=== PATIENT | male | born 1965 | race African-American/Black ===

== ENCOUNTER 2017-11-05 15:18 | Inpatient (IN) | payer MEDICARE, OTHER ==
[2017-11-05] VITALS (7 sets, daily range): BP systolic 112–184; BP diastolic 59–99
[~2017-11-05] VITALS: Ht 182.9 cm; Wt 123.4 kg
[2017-11-05] MEDS ORDERED: FLONASE ALLERG9.9 ML NS (15:33)
[2017-11-05] MEDS ORDERED: HYDRALAZINE HCL50 MG ORAL ×2 (15:33→19:59)
[2017-11-05] MEDS ORDERED: TAMSULOSIN HCL0.4 MG ORAL (15:34)
[2017-11-05] MEDS ORDERED: AMLODIPINE BESY10 MG ORAL (15:34)
[2017-11-05] MEDS ORDERED: Sodium Chloride 500ML 500 ML IV ONE (15:57)
[2017-11-05] MEDS ORDERED: Morphine Sulfate 4mg/ml Inj IVP ONE ×2 (16:00→18:00)
[2017-11-05] MEDS ORDERED: Isovue-300 100ml vial INJ PRN (16:00)
[2017-11-05 16:46] LABS: ANION GAP 6 mmol/L (5-15); BLOOD UREA NITROGEN 25 mg/dL (7-18); CALCIUM 8.7 MG/DL (8.5-10.1); CARBON DIOXIDE 26 MMOL/L (21-32); CHLORIDE 111 MMOL/L (98-107); POTASSIUM 4.1 MMOL/L (3.5-5.1); SODIUM 143 MMOL/L (136-145)
[2017-11-05 16:50] LABS: ALANINE AMINOTRANSFERASE 55 U/L (12-78); ALBUMIN/GLOBULIN RATIO 0.7 (1.0-2.7); ALKALINE PHOSPHATASE 79 U/L (46-116); APPEARANCE,URINE CLEAR; ASPARTATE AMINO TRANSFERASE 20 U/L (15-37); BILIRUBIN, URINE NEGATIVE (NEGATIVE); BILIRUBIN,TOTAL 0.2 MG/DL (0.2-1.0); COLOR,URINE PALE YELLOW; GLUCOSE, URINE (UA) NEGATIVE (NEGATIVE); KETONES,URINE NEGATIVE (NEGATIVE); LEUKOCYTE ESTERASE ,URINE NEGATIVE (NEGATIVE); NITRITE,URINE NEGATIVE (NEGATIVE); PH,URINE 5 (4.5-8.0); PROTEIN,URINE 3+ (NEGATIVE); UROBILINOGEN,URINE NORMAL MG/DL (0.0-1.0)
[2017-11-05 16:55] LABS: BASOPHILS % (AUTO) 0.5 % (0.0-2.0); EOSINOPHILS % (AUTO) 0.2 % (0.0-3.0); HEMATOCRIT 40.7 % (42.0-52.0); HEMOGLOBIN 13.4 G/DL (14.2-18.0); MEAN CORPUSCULAR VOLUME 85 FL (80-99); MONOCYTES % (AUTO) 3.3 % (1.0-10.0); PLATELET COUNT 145 K/UL (150-450); RED CELL DISTRIBUTION WIDTH 13.7 % (11.6-14.8); WHITE BLOOD COUNT 10.5 K/UL (4.8-10.8)
[2017-11-05] MEDS ORDERED: Gastrograffin 30ml ORAL PRN (17:00)
--- NOTE | 2017-11-05 19:13 | Emergency Room Report ---
History of Present Illness General Chief Complaint: Chest Pain Source: Patient Present Illness HPI 52-year-old male presents ED complaining of abdominal pain 3 days. Right-sided , sharp, 7 out of 10, nonradiating. Comes and goes. Denies nausea or vomiting. Notes episodes of chest tightness. Denies any at this time. Notes history of prior cholecystectomy. No other aggravating relieving factors. Denies any other associated symptoms Allergies: Coded Allergies: DIPHENHYDRAMINE (Verified Allergy, Unknown, 11/05/17) METOCLOPRAMIDE (Verified Allergy, Unknown, 11/05/17) Patient History Past Medical History: none Past Surgical History: none Pertinent Family History: none Social History: Denies: smoking, alcohol use, drug use Immunizations: UTD Reviewed Nursing Documentation: PMH: Agreed; PSxH: Agreed Nursing Documentation-PMH Hx Hypertension: Yes Review of Systems All Other Systems: negative except mentioned in HPI Physical Exam Vital Signs Date Time Temp Pulse Resp B/P (MAP) Pulse Ox O2 Delivery O2 Flow Rate FiO2 11/05/17 15:29 98.4 81 17 162/100 95 Room Air 98.4 Sp02 EP Interpretation: reviewed, normal General Appearance: no apparent distress, alert, GCS 15, non-toxic, obese Head: normocephalic Eyes: bilateral eye normal inspection, bilateral eye PERRL ENT: normal ENT inspection Neck: normal inspection Respiratory: chest non-tender, lungs clear, normal breath sounds, speaking full sentences Cardiovascular #1: regular rate, rhythm, no edema Gastrointestinal: normal bowel sounds, soft, non-distended, no guarding, no rebound, tenderness, other - RUQ surgical scar Rectal: deferred Genitourinary: no CVA tenderness Musculoskeletal: normal inspection Neurologic: alert, oriented x3, responsive, motor strength/tone normal, sensory intact, speech normal Skin: normal inspection Lymphatic: normal inspection Medical Decision Making Diagnostic Impression: Primary Impression: Renal insufficiency Additional Impression: Abdominal pain Qualified Codes: R10.31 - Right lower quadrant pain ER Course Hospital Course 52-year-old male presents to ED with R sided abd pain Differential diagnoses include: pyelonephritis, appendicits, SBO Clinical course Patient placed on stretcher. residential monitor. After initial history and physical I ordered labs, IV fluids, UA, pain medication and CT scan Labs - no leukocytosis, Hb/Hct stable. BUN/Cr elevated, trop negative CT abdomen and pelvis - s/p cholecystectomy, no acute process I discussed findings with the patient. He is not aware of any kidney issues. Patient continues to have pain. We will admit for renal failure and intractable abdominal pain Case discussed with Dr. Holbrook and he agreed to accept the patient to his service for further care and support I feel this is a highly complex case requiring extensive working including EKG/ Rhythm strip, Xray/CT/US, Blood/urine lab work, repeat exams while in ED, and administration of strong opiates/narcotics for pain control, admission to hospital or close patient follow up. Diagnosis - renal insufficiency, abdominal pain Patient admitted to floor in serious condition Labs Test 11/05/17 16:09 White Blood Count 10.5 K/UL (4.8-10.8) Red Blood Count 4.80 M/UL (4.70-6.10) Hemoglobin 13.4 G/DL (14.2-18.0) Hematocrit 40.7 % (42.0-52.0) Mean Corpuscular Volume 85 FL (80-99) Mean Corpuscular Hemoglobin 27.8 PG (27.0-31.0) Mean Corpuscular Hemoglobin Concent 32.8 G/DL (32.0-36.0) Red Cell Distribution Width 13.7 % (11.6-14.8) Platelet Count 145 K/UL (150-450) Mean Platelet Volume 6.8 FL (6.5-10.1) Neutrophils (%) (Auto) 87.0 % (45.0-75.0) Lymphocytes (%) (Auto) 9.0 % (20.0-45.0) Monocytes (%) (Auto) 3.3 % (1.0-10.0) Eosinophils (%) (Auto) 0.2 % (0.0-3.0) Basophils (%) (Auto) 0.5 % (0.0-2.0) Urine Color Pale yellow Urine Appearance Clear Urine pH 5 (4.5-8.0) Urine Specific [place] 1.015 (1.005-1.035) Urine Protein 3+ (NEGATIVE) Urine Glucose (UA) Negative (NEGATIVE) Urine Ketones Negative (NEGATIVE) Urine Occult Blood Negative (NEGATIVE) Urine Nitrite Negative (NEGATIVE) Urine Bilirubin Negative (NEGATIVE) Urine Urobilinogen Normal MG/DL (0.0-1.0) Urine Leukocyte Esterase Negative (NEGATIVE) Urine RBC 0-2 /HPF (0 - 0) Urine WBC 0-2 /HPF (0 - 0) Urine Squamous Epithelial Cells None /LPF (NONE/OCC) Urine Bacteria None /HPF (NONE) Sodium Level 143 MMOL/L (136-145) Potassium Level 4.1 MMOL/L (3.5-5.1) Chloride Level 111 MMOL/L (98-107) Carbon Dioxide Level 26 MMOL/L (21-32) Anion Gap 6 mmol/L (5-15) Blood Urea Nitrogen 25 mg/dL (7-18) Creatinine 2.0 MG/DL (0.55-1.30) Estimat Glomerular Filtration Rate 42.9 mL/min (>60) Glucose Level 107 MG/DL (74-106) Calcium Level 8.7 MG/DL (8.5-10.1) Total Bilirubin 0.2 MG/DL (0.2-1.0) Aspartate Amino Transf (AST/SGOT) 20 U/L (15-37) Alanine Aminotransferase (ALT/SGPT) 55 U/L (12-78) Alkaline Phosphatase 79 U/L (46-116) Troponin I 0.000 ng/mL (0.000-0.056) Total Protein 7.1 G/DL (6.4-8.2) Albumin 3.0 G/DL (3.4-5.0) Globulin 4.1 g/dL Albumin/Globulin Ratio 0.7 (1.0-2.7) Lipase 441 U/L (73-393) EKG Diagnostic Results Rate: normal Rhythm: NSR ST Segments: no acute changes ASA given to the pt in ED: No Rhythm Strip Diag. Results EP Interpretation: yes Rhythm: NSR, no PVC's, no ectopy CT/MRI/US Diagnostic Results CT/MRI/US Diagnostic Results : Imaging Test Ordered: CT A/P Impression No appendicitis, SBO, or diverticulitis. No hydronephrosis or ureteral calculus. Distended bladder. Cholecystectomy. No radiopaque choledocholithiasis. Unremarkable pancreas. Last Vital Signs Date Time Temp Pulse Resp B/P (MAP) Pulse Ox O2 Delivery O2 Flow Rate FiO2 11/05/17 18:45 98.6 11/05/17 18:00 67 17 122/59 99 Room Air Status: improved Disposition: ADMITTED INPATIENT Condition: Serious Referrals: NON PHYSICIAN (PCP) Ari Figueroa MD Nov 05, 2017 19:13
[2017-11-05] MEDS ORDERED: Tamsulosin 0.4mg cap ORAL SCH (21:00)
[2017-11-05] MEDS ORDERED: Milk of Magnesia 30ml Ud ORAL PRN (21:15)
[2017-11-05] MEDS ORDERED: HYDROcodone/Acetamin 10/325 tab ORAL PRN (21:15)
[2017-11-05] MEDS ORDERED: Norco 5mg/325mg tab ORAL PRN (21:15)
[2017-11-05] MEDS: HydrALAZINE 50mg tab ORAL SCH (21:25)
[2017-11-05] MEDS: D5NS 1,000 ML IV SCH (21:27)
[2017-11-05] MEDS: Morphine Sulfate 2mg/ml Inj IVP PRN (21:39)
[2017-11-06 00:02] VITALS: BP 159/86
[2017-11-06 04:00] VITALS: BP 153/93
[2017-11-06] MEDS: HydrALAZINE 50mg tab ORAL SCH ×3 (05:28→23:04)
[2017-11-06] MEDS: Morphine Sulfate 2mg/ml Inj IVP PRN ×3 (05:47→20:29)
[2017-11-06] MEDS: D5NS 1,000 ML IV SCH ×2 (06:04→17:30)
[2017-11-06 06:34] LABS: BASOPHILS % (AUTO) 0.6 % (0.0-2.0); EOSINOPHILS % (AUTO) 0.3 % (0.0-3.0); HEMATOCRIT 37.1 % (42.0-52.0); HEMOGLOBIN 12.2 G/DL (14.2-18.0); LYMPHOCYTES % (AUTO) 17.7 % (20.0-45.0); MEAN CORPUSCULAR VOLUME 85 FL (80-99); NEUTROPHILS % (AUTO) 74.5 % (45.0-75.0); PLATELET COUNT 135 K/UL (150-450); RED BLOOD COUNT 4.39 M/UL (4.70-6.10); RED CELL DISTRIBUTION WIDTH 13.6 % (11.6-14.8)
[2017-11-06 06:55] LABS: ANION GAP 7 mmol/L (5-15); BLOOD UREA NITROGEN 23 mg/dL (7-18); CALCIUM 8.4 MG/DL (8.5-10.1); CARBON DIOXIDE 24 MMOL/L (21-32); CHLORIDE 112 MMOL/L (98-107); CREATININE 1.7 MG/DL (0.55-1.30); POTASSIUM 3.9 MMOL/L (3.5-5.1); SODIUM 143 MMOL/L (136-145)
[2017-11-06 08:00] VITALS: BP 164/86
[2017-11-06] MEDS: Docusate 100mg cap ORAL SCH ×2 (08:10→18:07)
[2017-11-06] MEDS: Heparin 5000 units/ml inj SUBQ SCH ×2 (08:14→20:54)
--- NOTE | 2017-11-06 08:44 | Diagnostic Imaging Report ---
Indication: Right upper quadrant abdominal pain Technique: Spiral acquisitions obtained through the abdomen and pelvis. Patient ingested enteric contrast. No IV contrast utilized, due to renal insufficiency.. Multiplanar reconstructions were generated. Total dose length product 1210.97 mGycm. CTDIvol(s) 19.95 mGy. Dose reduction achieved using automated exposure control Comparison: None Findings: Normal appendix. There is fairly extensive colonic diverticulosis. No evidence of diverticulitis. No small bowel distention. Ingested contrast has traversed most of the length of the small bowel. The distal esophagus, stomach, duodenum are unremarkable. No small bowel distention or small bowel wall thickening. No free or loculated intraperitoneal air or fluid is evident. A surgical scar and fascial fantasma are seen along the right lower quadrant. Lack of IV contrast limits assessment of the solid organs. There is a 1.5 cm cyst at the tip of the right hepatic lobe. The gallbladder is surgically absent. The extrahepatic bile ducts are ectatic, measuring up to 10 mm diameter. No downstream obstructive lesion or intrahepatic biliary ductal dilatation demonstrated. The pancreas, spleen, adrenals are unremarkable. The kidneys demonstrate contour lobulation bilaterally, as well as slight stranding of the perinephric fat. No focal abnormality. No renal or ureteral calculi, hydronephrosis, or hydroureter. The bladder is distended, unremarkable. No pelvic mass or adenopathy. No retroperitoneal or mesenteric mass or adenopathy. The included lung bases demonstrate a 3 mm calcified nodule in the right middle lobe. There are focal groundglass opacities are seen in the lower lobes bilaterally, likely areas of atelectasis. The bones are unremarkable. Impression: No acute or significant abnormality Colonic diverticulosis. No evidence of diverticulitis Prior cholecystectomy. Mildly ectatic extrahepatic bile ducts, likely related to postcholecystectomy state. Correlate with liver function tests Other findings as noted, including right middle lobe pulmonary calcified granuloma, basilar pulmonary atelectatic changes, right lobe liver cyst This agrees with the preliminary interpretation provided overnight by [facility]eradiology service. The CT scanner at [facility] is accredited by the [employer] and the scans are performed using protocols designed to limit radiation exposure to as low as reasonably achievable to attain images of sufficient resolution adequate for diagnostic evaluation.
--- NOTE | 2017-11-06 08:45 | History and Physical ---
History & Physical (DB) History & Physical History & Physical HISTORY & PHYSICAL EXAM Chief Complaint: Abdominal pain Reason for Hospitalization: Pancreatitis History obtained from: Chart and Patient HPI: The patient is a 52 year old male with a h/o obesity, HTN and BPH who presents with 4 days of sharp epigastric and RUQ pain. He describes the pain as a stabbing sensation that comes and goes with a maximal intensity of 6/10, no radiation, alleviated by lying on his side but not really positional. It is aggravated by eating but he is able to tolerate PO, no N/V, no D/C, having daily formed stools, no F/C, no CP, no SOB, no hematemesis, hemoptysis, melena or BRBPR. No dysuria, urgency, hesitancy or frequency. He has been trying to keep himself hydrated. H/O prior naina many years ago. No T/E/D use. In the ED he was AFVSS x for elevated BP, ECG/trop neg, CT neg, elevated lipase and Cr. He has been admitted for further management. 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, single not , no kids Family History: Non-contributory Allergies: Diphenhydramine, Metoclopramide Active Scripts Medications Dose Route/Sig Max Daily Dose Days Date Category Hydralazine Hcl* (Hydralazine HCl) 50 Mg Tablet 50 Mg ORAL THREE TIMES A DAY 11/05/17 Reported Tamsulosin Hcl* (Tamsulosin HCl) 0.4 Mg Cap.er.24h 0.4 Mg ORAL BEDTIME 11/05/17 Reported Amlodipine Besylate* (Amlodipine Besylate) 10 Mg Tablet 10 Mg ORAL DAILY 11/05/17 Reported General ROS: no weight loss or fever Psychological ROS: no depression or mood changes, no memory loss Ophthalmic ROS: no visual changes or eye irritation ENT ROS: no nasal congestion, hearing loss, dizziness Allergy and Immunology ROS: no allergic symptoms or urticaria Hematological and Lymphatic ROS: no swollen glands, unusual bleeding or bruising Endocrine ROS: no polyuria, polydipsia, weight changes, temperature intolerance Respiratory ROS: no cough, shortness of breath, or wheezing Cardiovascular ROS: no chest pain or dyspnea on exertion Gastrointestinal ROS: + abdominal pain, no change in bowel habits, or black or bloody stools Musculoskeletal ROS: no myalgias or arthralgias Neurological ROS: no TIA or stroke symptoms Dermatological ROS: no new or changing skin lesions, rashes or pruritis Physical Exam Last Vital Signs Date Time Temp Pulse Resp B/P (MAP) Pulse Ox O2 Delivery O2 Flow Rate FiO2 11/06/17 08:11 71 164/86 11/06/17 08:00 97.3 20 98 97.3 11/06/17 04:00 Room Air General appearance: alert, cooperative, no distress, appears stated age, obese male Head: Normocephalic, without obvious abnormality, atraumatic Eyes: conjunctivae/corneas clear. PERRL, EOM's intact. Throat: Lips, mucosa, and tongue normal. Teeth and gums normal Neck: supple, symmetrical, trachea midline, no adenopathy, thyroid: not enlarged, symmetric, no tenderness/mass/nodules, no carotid bruit and no JVD Lungs: clear to auscultation bilaterally Heart: regular rate and rhythm, S1, S2 normal, no murmur, click, rub or gallop Abdomen: RUQ and epigastric TTP, S/ND c NABS Extremities: extremities normal, atraumatic, no cyanosis or edema Pulses: 2+ and symmetric Skin: Skin color, texture, turgor normal. No rashes or lesions Neurologic: Grossly normal Laboratory Tests Test 11/05/17 16:09 11/06/17 02:40 11/06/17 05:20 White Blood Count 10.5 K/UL (4.8-10.8) 9.0 K/UL (4.8-10.8) Red Blood Count 4.80 M/UL (4.70-6.10) 4.39 M/UL (4.70-6.10) L Hemoglobin 13.4 G/DL (14.2-18.0) L 12.2 G/DL (14.2-18.0) L Hematocrit 40.7 % (42.0-52.0) L 37.1 % (42.0-52.0) L Mean Corpuscular Volume 85 FL (80-99) 85 FL (80-99) Mean Corpuscular Hemoglobin 27.8 PG (27.0-31.0) 27.9 PG (27.0-31.0) Mean Corpuscular Hemoglobin Concent 32.8 G/DL (32.0-36.0) 33.0 G/DL (32.0-36.0) Red Cell Distribution Width 13.7 % (11.6-14.8) 13.6 % (11.6-14.8) Platelet Count 145 K/UL (150-450) L 135 K/UL (150-450) L Mean Platelet Volume 6.8 FL (6.5-10.1) 7.0 FL (6.5-10.1) Neutrophils (%) (Auto) 87.0 % (45.0-75.0) H 74.5 % (45.0-75.0) Lymphocytes (%) (Auto) 9.0 % (20.0-45.0) L 17.7 % (20.0-45.0) L Monocytes (%) (Auto) 3.3 % (1.0-10.0) 7.0 % (1.0-10.0) Eosinophils (%) (Auto) 0.2 % (0.0-3.0) 0.3 % (0.0-3.0) Basophils (%) (Auto) 0.5 % (0.0-2.0) 0.6 % (0.0-2.0) Urine Color Pale yellow Urine Appearance Clear Urine pH 5 (4.5-8.0) Urine Specific [place] 1.015 (1.005-1.035) Urine Protein 3+ (NEGATIVE) H Urine Glucose (UA) Negative (NEGATIVE) Urine Ketones Negative (NEGATIVE) Urine Occult Blood Negative (NEGATIVE) Urine Nitrite Negative (NEGATIVE) Urine Bilirubin Negative (NEGATIVE) Urine Urobilinogen Normal MG/DL (0.0-1.0) Urine Leukocyte Esterase Negative (NEGATIVE) Urine RBC 0-2 /HPF (0 - 0) H Urine WBC 0-2 /HPF (0 - 0) Urine Squamous Epithelial Cells None /LPF (NONE/OCC) Urine Bacteria None /HPF (NONE) Sodium Level 143 MMOL/L (136-145) 143 MMOL/L (136-145) Potassium Level 4.1 MMOL/L (3.5-5.1) 3.9 MMOL/L (3.5-5.1) Chloride Level 111 MMOL/L (98-107) H 112 MMOL/L (98-107) H Carbon Dioxide Level 26 MMOL/L (21-32) 24 MMOL/L (21-32) Anion Gap 6 mmol/L (5-15) 7 mmol/L (5-15) Blood Urea Nitrogen 25 mg/dL (7-18) H 23 mg/dL (7-18) H Creatinine 2.0 MG/DL (0.55-1.30) H 1.7 MG/DL (0.55-1.30) H Estimat Glomerular Filtration Rate 42.9 mL/min (>60) 51.8 mL/min (>60) Glucose Level 107 MG/DL (74-106) H 95 MG/DL (74-106) Calcium Level 8.7 MG/DL (8.5-10.1) 8.4 MG/DL (8.5-10.1) L Total Bilirubin 0.2 MG/DL (0.2-1.0) Aspartate Amino Transf (AST/SGOT) 20 U/L (15-37) Alanine Aminotransferase (ALT/SGPT) 55 U/L (12-78) Alkaline Phosphatase 79 U/L (46-116) Troponin I 0.000 ng/mL (0.000-0.056) 0.005 ng/mL (0.000-0.056) Total Protein 7.1 G/DL (6.4-8.2) Albumin 3.0 G/DL (3.4-5.0) L Globulin 4.1 g/dL Albumin/Globulin Ratio 0.7 (1.0-2.7) L Lipase 441 U/L (73-393) H 119 U/L (73-393) Urine Eosinophils None seen Urine Random Sodium 71 mmol/L (20-110) Urine Creatinine 52.2 MG/DL (30.0-125.0) Hemoglobin A1c 6.2 % (4.3-6.0) H Osmolality Pending Assessment/Problem List: * Abdominal pain * Pancreatitis * HTN, poorly controlled * Obesity * Abnormal renal function, CARLOS vs CKD Plan: * Admit to hospital * NPO, bowel rest, IVF * Pain control/supportive care * GI evaluation * BP control * Monitor renal function, IVF, renal US, urine studies, renal evaluation DVT Prophylaxis: HEPARIN SQ Code status: full Hospital Classification declaration: Based on this initial evaluation, and depending on the patient's clinical course, I anticipate that this patient will require hospitalization for 2-3 days. Disposition: Once the patient is stable to leave the hospital, I anticipate the patient will likely be discharged to the following environment I spent 70 minutes on this patient's case, and minutes was dedicated to counseling and/or care coordination. Case was discussed with JUANJO, RN and consultants Time of note may not reflect time of encounter. MD Sheron Kelly Ashkan L. MD Nov 06, 2017 08:45
[2017-11-06 12:00] VITALS: BP 146/89
--- NOTE | 2017-11-06 12:07 | Diagnostic Imaging Report ---
Indication: Pain, abnormal renal function tests, acute renal failure Technique: Grayscale and duplex images of the kidneys, retroperitoneum, and bladder were obtained. Comparison: none Findings: Right kidney measures 10.9 cm in length. Left kidney measures 10.8 cm in length. Both kidneys demonstrate slightly increased echogenicity. No hydronephrosis. Small cysts are demonstrated bilaterally. Normal inferior vena cava. Bladder is distended, calculated volume 460 mL. Impression: Equivocally mildly increased renal echogenicity, if real could indicate medical renal disease Negative for hydronephrosis Incidental finding bilateral renal cysts.
--- NOTE | 2017-11-06 13:34 | Diagnostic Imaging Report ---
Indication: Sharp epigastric and right upper quadrant pain. Mildly ectatic extrahepatic bile ducts seen on recent CT Technique: Coronal and axial single shot fast spin-echo breath-hold, axial T2 FRFSE, 2-D thick slab MRCP, AXIAL 2-D FIESTA fat saturated, axial 3-D dual echo breath-hold, water weighted axial LAVA FLEX, revealed 3-D MRCP images were obtained of the abdomen. MIP reconstructions were generated of the bile ducts Comparison: Reference made to abdomen pelvis CT dated 11/05/2017 Findings: Common hepatic duct and common bile duct each measure approximately 10 mm in diameter. There is also mild central intrahepatic ductal dilatation. Normal caliber pancreatic duct. The common bile duct tapers to more normal caliber downstream. No filling defects are demonstrated. No downstream obstructive lesion demonstrated. No pancreatic head mass. The liver demonstrates a lobulated cyst in the tip of the right hepatic lobe. It is otherwise unremarkable. The pancreas, spleen, adrenals are unremarkable. The left kidney demonstrates 2 tiny cysts, one of which is equivocally visible in retrospect on previous noncontrast CT. The kidneys are otherwise unremarkable. Impression: Dilated extrahepatic and mildly dilated central intrahepatic bile ducts, but no definite downstream obstructive lesion demonstrated. Possibly related to postcholecystectomy state. Correlate with liver function tests Right lobe liver cyst. 2 tiny left renal cysts
[2017-11-06 16:00] VITALS: BP 152/84
--- NOTE | 2017-11-06 17:10 | Consultation ---
Consult Note Consult Note asked to eval for elevated Cr 52-year-old male presents ED complaining of abdominal pain 3 days. Right-sided , sharp, 7 out of 10, nonradiating. Comes and goes. Denies nausea or vomiting. Notes episodes of chest tightness. Denies any at this time. Notes history of prior cholecystectomy. No other aggravating relieving factors. Denies any other associated symptoms Allergies: DIPHENHYDRAMINE (Verified Allergy, Unknown, 11/05/17) METOCLOPRAMIDE (Verified Allergy, Unknown, 11/05/17) Patient History Obesity, HTN, BPH Interviewed- examined data reviewed . Assessment/Plan - Abdominal pain - Pancreatitis - HTN, poorly controlled - BPH - Obesity with elevated Hgb A1c and 3+ Proteinuria - Abnormal renal function, CARLOS vs CKD, likely main componenet of dehydration slow hydrate- increase flomax monitor renal parameters adjust bp meds as needed keep BS and BP in check CAREY GONZALEZ Nov 06, 2017 17:10
[2017-11-06] MEDS: Tamsulosin 0.4mg cap ORAL SCH (18:07)
[2017-11-06] MEDS: Potassium Chloride 10 MEQ in D5 1/2NS 1,000 ML IV SCH (18:08)
[2017-11-06 20:00] VITALS: BP 158/91
[2017-11-06] MEDS ORDERED: D5NS 1000ml IV ONE (22:03)
[2017-11-06] MEDS ORDERED: Morphine Sulfate 4mg/ml Inj IVP PRN (22:15)
--- NOTE | 2017-11-06 22:36 | General Progress Note ---
Assessment/Plan Assessment/Plan Assessment - Resolved abdominal pain - mildly elevated lipase - possible mild pancreatitis - diverticulosis Recommendations - clears and advance at tolerated - follow symptoms and exam - no further GI w/u, unless has another episode of pancreatitis - Outpatient EGD/Colon Subjective Allergies: Coded Allergies: DIPHENHYDRAMINE (Verified Allergy, Unknown, 11/05/17) METOCLOPRAMIDE (Verified Allergy, Unknown, 11/05/17) Objective Last 24 Hour Vital Signs Date Time Temp Pulse Resp B/P (MAP) Pulse Ox O2 Delivery O2 Flow Rate FiO2 11/06/17 20:00 98.4 65 18 158/91 97 98.4 11/06/17 16:00 97.9 67 20 152/84 97 97.9 11/06/17 13:13 146/89 11/06/17 12:00 97.8 70 20 146/89 97 97.8 11/06/17 08:11 71 164/86 11/06/17 08:00 97.3 71 20 164/86 98 97.3 11/06/17 05:28 153/93 11/06/17 04:00 98.1 71 20 153/93 94 98.1 11/06/17 04:00 98.1 71 20 153/93 94 Room Air 98.1 11/06/17 00:02 98.1 74 20 159/86 96 98.1 Intake and Output 11/05/17 11/06/17 19:00 07:00 Intake Total 800 ml Output Total 1000 ml Balance -200 ml IV Total 800 ml Output Urine Total 1000 ml # Voids 1 Laboratory Tests 11/06/17 02:40: Urine Eosinophils None seen, Urine Random Sodium 71, Urine Creatinine 52.2 11/06/17 05:20: White Blood Count 9.0, Red Blood Count 4.39L, Hemoglobin 12.2L, Hematocrit 37.1L , Mean Corpuscular Volume 85, Mean Corpuscular Hemoglobin 27.9, Mean Corpuscular Hemoglobin Concent 33.0, Red Cell Distribution Width 13.6, Platelet Count 135L, Mean Platelet Volume 7.0, Neutrophils (%) (Auto) 74.5, Lymphocytes ( %) (Auto) 17.7L, Monocytes (%) (Auto) 7.0, Eosinophils (%) (Auto) 0.3, Basophils (%) (Auto) 0.6, Sodium Level 143, Potassium Level 3.9, Chloride Level 112H, Carbon Dioxide Level 24, Anion Gap 7, Blood Urea Nitrogen 23H, Creatinine 1.7H, Estimat Glomerular Filtration Rate 51.8, Glucose Level 95, Hemoglobin A1c 6.2H, Osmolality 305, Calcium Level 8.4L, Troponin I 0.005, C-Reactive Protein, Quantitative < 0.4, Lipase 119 11/06/17 19:00: Stool Occult Blood [Pending] Height (Feet): 6 Height (Inches): 0.00 Weight (Pounds): 272 Morris Horowitz MD Nov 06, 2017 22:35
[2017-11-07] VITALS (8 sets, daily range): BP systolic 136–163; BP diastolic 78–98
--- NOTE | 2017-11-07 00:30 | Consultation ---
DATE OF CONSULTATION: 11/06/2017 GASTROENTEROLOGY CONSULTATION CONSULTING PHYSICIAN: Morris Horowitz M.D. CHIEF COMPLAINT: I was asked to see this patient by Dr. Ankur Holbrook for evaluation of abdominal pain and possible pancreatitis. HISTORY OF PRESENT ILLNESS: The patient is a 52-year-old man with multiple medical problems, who comes in to the hospital due to a four-day history of epigastric abdominal pain. The patient states this pain is new for him and he has not had this before. He has had some nausea, but no vomiting. The pain at times is severe and this brought him to the emergency room. He has not had an endoscopy, though his last colonoscopy was in the year 1999. In the emergency room, he had a mildly elevated lipase, which is now resolved and therefore he is admitted to the hospital. Initial imaging showed his post cholecystectomy anatomy, which is already known. There was also evidence of colonic diverticulosis. There was some mildly ectatic extrahepatic bile ducts, which was felt to be due to his prior cholecystectomy. PAST MEDICAL HISTORY: Remarkable for history of hypertension and history of benign prostatic hypertrophy. PAST SURGICAL HISTORY: Status post transurethral resection of prostate as well as cholecystectomy. ALLERGIES: Reglan and Benadryl. FAMILY HISTORY: Positive for congestive heart failure in mother and brother as well with gastric cancer in brother. SOCIAL HISTORY: The patient is single, has no children. He does not smoke, drink, or use drugs. REVIEW OF SYSTEMS: Otherwise negative. PHYSICAL EXAMINATION: GENERAL: The patient is a pleasant gentleman in no distress. HEENT: Normocephalic and atraumatic. Sclerae anicteric. Oropharynx clear. NECK: Supple. CHEST: Clear to auscultation. CARDIOVASCULAR: Revealed a regular rate. ABDOMEN: Soft with good bowel sounds. There is no obvious tenderness to palpation. EXTREMITIES: Revealed no edema. NEUROLOGIC: Grossly nonfocal. LABORATORY AND DIAGNOSTIC DATA: Laboratory data were noted. ASSESSMENT: This patient presents with acute abdominal pain, which is now significantly better. There was some mild elevation in lipase for one day, which has resolved. This may or may not clearly be indicative of appendicitis, especially given the imaging studies different information. I have ordered an MRI scan, which also shows no significant information. However, the patient may have had a small episode of pancreatitis, which has resolved. This episode could be from biliary microlithiasis. Since his MRCP is negative, I would not recommend pursuing an ERCP at this time. However, should he show another episode of pancreatitis, then he should undergo ERCP examination with possible manometry of the sphincter of Oddi. RECOMMENDATIONS: 1. Advance diet slowly. 2. Follow laboratory parameters and exam. 3. No further GI procedures planned at this time unless pancreatitis recurs. 4. The patient was advised to have an outpatient endoscopy and colonoscopy after discharge. Thank you for asking me to participate in the care of this patient. Morris Horowitz M.D. DR: SHANTANU JOB#: [id number] CC: ANN MARIE
[2017-11-07] MEDS: D5NS 1,000 ML IV SCH ×2 (03:30→13:30)
[2017-11-07] MEDS: HydrALAZINE 50mg tab ORAL SCH ×3 (05:30→21:45)
[2017-11-07] MEDS: Morphine Sulfate 4mg/ml Inj IVP PRN ×2 (06:41→20:25)
[2017-11-07 07:23] LABS: BASOPHILS % (AUTO) 0.4 % (0.0-2.0); EOSINOPHILS % (AUTO) 0.8 % (0.0-3.0); HEMATOCRIT 39.7 % (42.0-52.0); HEMOGLOBIN 12.6 G/DL (14.2-18.0); LYMPHOCYTES % (AUTO) 23.7 % (20.0-45.0); MEAN CORPUSCULAR VOLUME 84 FL (80-99); NEUTROPHILS % (AUTO) 68.1 % (45.0-75.0); PLATELET COUNT 151 K/UL (150-450); RED BLOOD COUNT 4.74 M/UL (4.70-6.10); RED CELL DISTRIBUTION WIDTH 13.6 % (11.6-14.8); WHITE BLOOD COUNT 8.3 K/UL (4.8-10.8)
[2017-11-07] MEDS: Potassium Chloride 10 MEQ in D5 1/2NS 1,000 ML IV SCH ×2 (07:34→20:24)
[2017-11-07 08:05] LABS: ALANINE AMINOTRANSFERASE 43 U/L (12-78); ALBUMIN 2.5 G/DL (3.4-5.0); ALBUMIN/GLOBULIN RATIO 0.7 (1.0-2.7); ALKALINE PHOSPHATASE 62 U/L (46-116); ANION GAP 8 mmol/L (5-15); ASPARTATE AMINO TRANSFERASE 17 U/L (15-37); BILIRUBIN,TOTAL 0.3 MG/DL (0.2-1.0); BLOOD UREA NITROGEN 17 mg/dL (7-18); CALCIUM 8.5 MG/DL (8.5-10.1); CARBON DIOXIDE 25 MMOL/L (21-32); CHLORIDE 108 MMOL/L (98-107); CHOLESTEROL 121 MG/DL (< 200); CREATINE KINASE 86 U/L (26-308); CREATININE 1.7 MG/DL (0.55-1.30); GAMMA GLUTAMYL TRANSPEPTIDASE 51 U/L (5-85); HDL CHOLESTEROL 43 MG/DL (40-60); PHOSPHORUS 3.7 MG/DL (2.5-4.9); POTASSIUM 3.5 MMOL/L (3.5-5.1); SODIUM 141 MMOL/L (136-145); TRIGLYCERIDES 101 MG/DL (30-150)
[2017-11-07] MEDS: Heparin 5000 units/ml inj SUBQ SCH ×2 (09:00→20:26)
[2017-11-07] MEDS: Tamsulosin 0.4mg cap ORAL SCH ×2 (09:49→17:38)
[2017-11-07] MEDS: Docusate 100mg cap ORAL SCH ×2 (09:49→17:38)
--- NOTE | 2017-11-07 16:06 | Nephrology Progress Note ---
Assessment/Plan Problem List: (1) Acute renal failure (ARF) Assessment: on CKD (2) Abdominal pain Assessment: high lipase (3) Hypertensive kidney disease Assessment - Abdominal pain - Pancreatitis - HTN, poorly controlled - BPH - Obesity with elevated Hgb A1c and 3+ Proteinuria - Abnormal renal function, CARLOS vs CKD, likely main componenet of dehydration Plan slow hydrate- increase flomax monitor renal parameters adjust bp meds as needed keep BS and BP in check JEFF: Equivocally mildly increased renal echogenicity, if real could indicate medical renal disease Negative for hydronephrosis Incidental finding bilateral renal cysts. Subjective ROS Limited/Unobtainable: No Objective Objective Last 24 Hour Vital Signs Date Time Temp Pulse Resp B/P (MAP) Pulse Ox O2 Delivery O2 Flow Rate FiO2 11/07/17 15:31 163/93 11/07/17 15:31 97.3 11/07/17 12:44 163/93 11/07/17 12:00 97.3 87 18 163/93 94 Room Air 97.3 11/07/17 09:50 93 136/79 11/07/17 08:00 99.3 93 18 136/79 97 Room Air 99.3 11/07/17 07:11 98.7 11/07/17 05:30 151/86 11/07/17 04:51 162/93 11/07/17 04:00 98.7 85 19 162/93 96 Room Air 98.7 11/07/17 00:30 155/92 11/07/17 00:00 97.4 63 18 162/98 96 Room Air 97.4 11/06/17 23:04 162/98 11/06/17 20:00 98.4 65 18 158/91 97 Room Air 98.4 11/06/17 16:00 97.9 67 20 152/84 97 97.9 Intake and Output 11/06/17 11/07/17 19:00 07:00 Intake Total 975 ml 1440 ml Output Total 1300 ml Balance 975 ml 140 ml Intake Oral 540 ml IV Total 975 ml 900 ml Output Urine Total 1300 ml # Voids 1 1 # Bowel Movements 1 Laboratory Tests 11/06/17 19:00: Stool Occult Blood Negative 11/07/17 06:15: White Blood Count 8.3, Red Blood Count 4.74, Hemoglobin 12.6L, Hematocrit 39.7L , Mean Corpuscular Volume 84, Mean Corpuscular Hemoglobin 26.5L, Mean Corpuscular Hemoglobin Concent 31.7L, Red Cell Distribution Width 13.6, Platelet Count 151, Mean Platelet Volume 6.8, Neutrophils (%) (Auto) 68.1, Lymphocytes (%) (Auto) 23.7, Monocytes (%) (Auto) 7.0, Eosinophils (%) (Auto) 0.8, Basophils (%) (Auto) 0.4, Sodium Level 141, Potassium Level 3.5, Chloride Level 108H, Carbon Dioxide Level 25, Anion Gap 8, Blood Urea Nitrogen 17, Creatinine 1.7H, Estimat Glomerular Filtration Rate 51.8, Glucose Level 89, Uric Acid 8.1H, Calcium Level 8.5, Phosphorus Level 3.7, Magnesium Level 1.5L, Total Bilirubin 0.3, Gamma Glutamyl Transpeptidase 51, Aspartate Amino Transf ( AST/SGOT) 17, Alanine Aminotransferase (ALT/SGPT) 43, Alkaline Phosphatase 62, Total Creatine Kinase 86, Pro-B-Type Natriuretic Peptide 55, Total Protein 6.2L , Albumin 2.5L, Globulin 3.7, Albumin/Globulin Ratio 0.7L, Triglycerides Level 101, Cholesterol Level 121, LDL Cholesterol 73, HDL Cholesterol 43, Cholesterol/ HDL Ratio 2.8L, Lipase 112, Thyroid Stimulating Hormone (TSH) 0.420 Height (Feet): 6 Height (Inches): 0.00 Weight (Pounds): 272 General Appearance: no apparent distress Abdomen: soft CAREY GONZALEZ Nov 07, 2017 16:06
--- NOTE | 2017-11-07 17:40 | General Progress Note ---
Assessment/Plan Assessment/Plan Assessment - Resolved abdominal pain - mildly elevated lipase - possible mild pancreatitis - resolved - diverticulosis Recommendations - advance to solids - follow symptoms and exam - no further GI w/u, unless has another episode of pancreatitis - Outpatient EGD/Colon Subjective Allergies: Coded Allergies: DIPHENHYDRAMINE (Verified Allergy, Unknown, 11/05/17) METOCLOPRAMIDE (Verified Allergy, Unknown, 11/05/17) Subjective Feels OK no abd pain tolerating liquids Objective Last 24 Hour Vital Signs Date Time Temp Pulse Resp B/P (MAP) Pulse Ox O2 Delivery O2 Flow Rate FiO2 11/07/17 16:30 97.2 11/07/17 16:00 97.2 87 18 146/91 95 97.2 11/07/17 15:31 163/93 11/07/17 15:31 97.3 11/07/17 12:44 163/93 11/07/17 12:00 97.3 87 18 163/93 94 Room Air 97.3 11/07/17 09:50 93 136/79 11/07/17 08:00 99.3 93 18 136/79 97 Room Air 99.3 11/07/17 07:11 98.7 11/07/17 05:30 151/86 11/07/17 04:51 162/93 11/07/17 04:00 98.7 85 19 162/93 96 Room Air 98.7 11/07/17 00:30 155/92 11/07/17 00:00 97.4 63 18 162/98 96 Room Air 97.4 11/06/17 23:04 162/98 11/06/17 20:00 98.4 65 18 158/91 97 Room Air 98.4 Intake and Output 11/06/17 11/07/17 19:00 07:00 Intake Total 975 ml 1440 ml Output Total 1300 ml Balance 975 ml 140 ml Intake Oral 540 ml IV Total 975 ml 900 ml Output Urine Total 1300 ml # Voids 1 1 # Bowel Movements 1 Laboratory Tests 11/06/17 19:00: Stool Occult Blood Negative 11/07/17 06:15: White Blood Count 8.3, Red Blood Count 4.74, Hemoglobin 12.6L, Hematocrit 39.7L , Mean Corpuscular Volume 84, Mean Corpuscular Hemoglobin 26.5L, Mean Corpuscular Hemoglobin Concent 31.7L, Red Cell Distribution Width 13.6, Platelet Count 151, Mean Platelet Volume 6.8, Neutrophils (%) (Auto) 68.1, Lymphocytes (%) (Auto) 23.7, Monocytes (%) (Auto) 7.0, Eosinophils (%) (Auto) 0.8, Basophils (%) (Auto) 0.4, Sodium Level 141, Potassium Level 3.5, Chloride Level 108H, Carbon Dioxide Level 25, Anion Gap 8, Blood Urea Nitrogen 17, Creatinine 1.7H, Estimat Glomerular Filtration Rate 51.8, Glucose Level 89, Uric Acid 8.1H, Calcium Level 8.5, Phosphorus Level 3.7, Magnesium Level 1.5L, Total Bilirubin 0.3, Gamma Glutamyl Transpeptidase 51, Aspartate Amino Transf ( AST/SGOT) 17, Alanine Aminotransferase (ALT/SGPT) 43, Alkaline Phosphatase 62, Total Creatine Kinase 86, Pro-B-Type Natriuretic Peptide 55, Total Protein 6.2L , Albumin 2.5L, Globulin 3.7, Albumin/Globulin Ratio 0.7L, Triglycerides Level 101, Cholesterol Level 121, LDL Cholesterol 73, HDL Cholesterol 43, Cholesterol/ HDL Ratio 2.8L, Lipase 112, Thyroid Stimulating Hormone (TSH) 0.420 Height (Feet): 6 Height (Inches): 0.00 Weight (Pounds): 272 Objective WDWN NAD NCAT supple CTA RRR soft NT ND no edema non focal Morris Horowitz MD Nov 07, 2017 17:40
--- NOTE | 2017-11-07 18:41 | General Progress Note ---
Assessment/Plan Problem List: (1) Abdominal pain ICD Codes: R10.9 - Unspecified abdominal pain SNOMED: 74990272 Qualifiers: Qualified Codes: R10.31 - Right lower quadrant pain (2) Acute renal failure (ARF) ICD Codes: N17.9 - Acute kidney failure, unspecified SNOMED: 36387084 (3) Hypertensive kidney disease ICD Codes: I12.9 - Hypertensive chronic kidney disease with stage 1 through stage 4 chronic kidney disease, or unspecified chronic kidney disease SNOMED: 91301129 Status: doing well Assessment/Plan Assessment/Problem List: * Abdominal pain - BETTER * Pancreatitis, mild - IMPROVED * HTN, poorly controlled * Obesity * Abnormal renal function, CARLOS vs CKD - BETTER Plan: * Pain control/supportive care * Advance diet per GI * F/U GI recs: outpatient EGD/colo * BP control: Norvasc 10 mg daily, Clonidine 10 TID, Hydralazine 100 TID * Monitor renal function, IVF, F/U renal recs * DVT Px: HEP SQ * D/C home in am if pain well controlled with outpatient follow up DVT Prophylaxis: HEPARIN SQ Code status: full Hospital Classification declaration: Based on this initial evaluation, and depending on the patient's clinical course, I anticipate that this patient will require hospitalization for 2-3 days. Disposition: Once the patient is stable to leave the hospital, I anticipate the patient will likely be discharged to the following environment I spent 70 minutes on this patient's case, and minutes was dedicated to counseling and/or care coordination. Case was discussed with SIDDHARTH GEIGER and consultants Time of note may not reflect time of encounter. Ankur Holbrook MD Subjective Allergies: Coded Allergies: DIPHENHYDRAMINE (Verified Allergy, Unknown, 11/05/17) METOCLOPRAMIDE (Verified Allergy, Unknown, 11/05/17) Subjective AFVSS, BP elevated but better, daniel PO, pain better, no N/V, + BM, Cr better 1.7 , no F/C Objective Last 24 Hour Vital Signs Date Time Temp Pulse Resp B/P (MAP) Pulse Ox O2 Delivery O2 Flow Rate FiO2 11/07/17 16:30 97.2 11/07/17 16:00 97.2 87 18 146/91 95 97.2 11/07/17 15:31 163/93 11/07/17 15:31 97.3 6/22/18 12:44 163/93 11/07/17 12:00 97.3 87 18 163/93 94 Room Air 97.3 11/07/17 09:50 93 136/79 11/07/17 08:00 99.3 93 18 136/79 97 Room Air 99.3 11/07/17 07:11 98.7 11/07/17 05:30 151/86 11/07/17 04:51 162/93 11/07/17 04:00 98.7 85 19 162/93 96 Room Air 98.7 11/07/17 00:30 155/92 11/07/17 00:00 97.4 63 18 162/98 96 Room Air 97.4 11/06/17 23:04 162/98 11/06/17 20:00 98.4 65 18 158/91 97 Room Air 98.4 Intake and Output 11/06/17 11/07/17 19:00 07:00 Intake Total 975 ml 1440 ml Output Total 1300 ml Balance 975 ml 140 ml Intake Oral 540 ml IV Total 975 ml 900 ml Output Urine Total 1300 ml # Voids 1 1 # Bowel Movements 1 Laboratory Tests 11/06/17 19:00: Stool Occult Blood Negative 11/07/17 06:15: White Blood Count 8.3, Red Blood Count 4.74, Hemoglobin 12.6L, Hematocrit 39.7L , Mean Corpuscular Volume 84, Mean Corpuscular Hemoglobin 26.5L, Mean Corpuscular Hemoglobin Concent 31.7L, Red Cell Distribution Width 13.6, Platelet Count 151, Mean Platelet Volume 6.8, Neutrophils (%) (Auto) 68.1, Lymphocytes (%) (Auto) 23.7, Monocytes (%) (Auto) 7.0, Eosinophils (%) (Auto) 0.8, Basophils (%) (Auto) 0.4, Sodium Level 141, Potassium Level 3.5, Chloride Level 108H, Carbon Dioxide Level 25, Anion Gap 8, Blood Urea Nitrogen 17, Creatinine 1.7H, Estimat Glomerular Filtration Rate 51.8, Glucose Level 89, Uric Acid 8.1H, Calcium Level 8.5, Phosphorus Level 3.7, Magnesium Level 1.5L, Total Bilirubin 0.3, Gamma Glutamyl Transpeptidase 51, Aspartate Amino Transf ( AST/SGOT) 17, Alanine Aminotransferase (ALT/SGPT) 43, Alkaline Phosphatase 62, Total Creatine Kinase 86, Pro-B-Type Natriuretic Peptide 55, Total Protein 6.2L , Albumin 2.5L, Globulin 3.7, Albumin/Globulin Ratio 0.7L, Triglycerides Level 101, Cholesterol Level 121, LDL Cholesterol 73, HDL Cholesterol 43, Cholesterol/ HDL Ratio 2.8L, Lipase 112, Thyroid Stimulating Hormone (TSH) 0.420 Height (Feet): 6 Height (Inches): 0.00 Weight (Pounds): 272 General Appearance: WD/WN, no apparent distress, alert EENT: PERRL/EOMI, normal ENT inspection, TMs normal, pharynx normal Neck: non-tender, normal alignment, supple Cardiovascular: normal peripheral pulses, normal rate, regular rhythm Respiratory/Chest: chest wall non-tender, lungs clear, normal breath sounds, no respiratory distress, no accessory muscle use Abdomen: normal bowel sounds, soft, no organomegaly, no mass, tender - mild RUQ Extremities: non-tender Edema: no edema noted Arm (L), no edema noted Arm (R), no edema noted Leg (L), no edema noted Leg (R), no edema noted Pedal (L), no edema noted Pedal (R), no edema noted Generalized Ankur Holbrook MD Nov 07, 2017 18:41
[2017-11-08 00:27] VITALS: BP 133/87
[2017-11-08 04:50] VITALS: BP 147/86
[2017-11-08] MEDS: HydrALAZINE 50mg tab ORAL SCH ×2 (05:46→13:15)
[2017-11-08 07:59] LABS: ALANINE AMINOTRANSFERASE 42 U/L (12-78); ALBUMIN 2.5 G/DL (3.4-5.0); ALBUMIN/GLOBULIN RATIO 0.7 (1.0-2.7); ALKALINE PHOSPHATASE 60 U/L (46-116); ANION GAP 9 mmol/L (5-15); ASPARTATE AMINO TRANSFERASE 19 U/L (15-37); BILIRUBIN,TOTAL 0.3 MG/DL (0.2-1.0); BLOOD UREA NITROGEN 15 mg/dL (7-18); CALCIUM 8.7 MG/DL (8.5-10.1); CARBON DIOXIDE 24 MMOL/L (21-32); CHLORIDE 107 MMOL/L (98-107); CREATININE 1.9 MG/DL (0.55-1.30); PHOSPHORUS 3.6 MG/DL (2.5-4.9); POTASSIUM 3.6 MMOL/L (3.5-5.1); SODIUM 140 MMOL/L (136-145)
[2017-11-08 08:00] VITALS: BP 138/87
[2017-11-08] MEDS: Tamsulosin 0.4mg cap ORAL SCH (08:40)
[2017-11-08] MEDS: Docusate 100mg cap ORAL SCH (08:40)
[2017-11-08] MEDS: Heparin 5000 units/ml inj SUBQ SCH (08:42)
--- NOTE | 2017-11-08 09:32 | General Progress Note ---
Assessment/Plan Problem List: (1) Abdominal pain ICD Codes: R10.9 - Unspecified abdominal pain SNOMED: 93262916 Qualifiers: Qualified Codes: R10.31 - Right lower quadrant pain (2) Renal insufficiency ICD Codes: N28.9 - Disorder of kidney and ureter, unspecified SNOMED: 846211182, [id number] (3) Hypertensive kidney disease ICD Codes: I12.9 - Hypertensive chronic kidney disease with stage 1 through stage 4 chronic kidney disease, or unspecified chronic kidney disease SNOMED: 12722372 Assessment/Plan abd pain stable needs out patient fu for GI procedures stable H&H ok to dc Subjective ROS Limited/Unobtainable: Yes Allergies: Coded Allergies: DIPHENHYDRAMINE (Verified Allergy, Unknown, 11/05/17) METOCLOPRAMIDE (Verified Allergy, Unknown, 11/05/17) Subjective no abd pain Objective Last 24 Hour Vital Signs Date Time Temp Pulse Resp B/P (MAP) Pulse Ox O2 Delivery O2 Flow Rate FiO2 11/08/17 08:40 69 138/87 11/08/17 08:00 97.9 69 18 138/87 97 Room Air 97.9 11/08/17 05:46 147/86 11/08/17 05:45 147/86 11/08/17 04:50 98.3 79 20 147/86 97 Room Air 98.3 11/08/17 00:27 98.6 89 20 133/87 98 Room Air 98.6 11/07/17 21:45 153/78 11/07/17 21:45 153/78 11/07/17 20:00 97.9 98 20 153/78 96 Room Air 97.9 11/07/17 16:30 97.2 11/07/17 16:00 97.2 87 18 146/91 95 97.2 11/07/17 15:31 163/93 11/07/17 15:31 97.3 11/07/17 12:44 163/93 11/07/17 12:00 97.3 87 18 163/93 94 Room Air 97.3 11/07/17 09:50 93 136/79 Intake and Output 11/07/17 11/08/17 19:00 07:00 Intake Total 1000 ml 250 ml Output Total 600 ml Balance 400 ml 250 ml Intake Oral 1000 ml 250 ml Output Urine Total 600 ml # Voids 2 Laboratory Tests 11/08/17 06:57: Sodium Level 140, Potassium Level 3.6, Chloride Level 107, Carbon Dioxide Level 24, Anion Gap 9, Blood Urea Nitrogen 15, Creatinine 1.9H, Estimat Glomerular Filtration Rate 45.6, Glucose Level 98, Calcium Level 8.7, Phosphorus Level 3.6 , Magnesium Level 1.7L, Total Bilirubin 0.3, Aspartate Amino Transf (AST/SGOT) 19, Alanine Aminotransferase (ALT/SGPT) 42, Alkaline Phosphatase 60, Total Protein 6.1L, Albumin 2.5L, Globulin 3.6, Albumin/Globulin Ratio 0.7L Height (Feet): 6 Height (Inches): 0.00 Weight (Pounds): 272 General Appearance: alert EENT: normal ENT inspection Neck: supple Cardiovascular: normal rate Respiratory/Chest: lungs clear Abdomen: normal bowel sounds, non tender, soft Extremities: non-tender Eduardo Florence MD Nov 08, 2017 09:32
[2017-11-08] MEDS: Potassium Chloride 10 MEQ in D5 1/2NS 1,000 ML IV SCH (10:02)
--- NOTE | 2017-11-08 10:11 | Nephrology Progress Note ---
Assessment/Plan Problem List: (1) Acute renal failure (ARF) Assessment: on CKD (2) Abdominal pain Assessment: high lipase (3) Hypertensive kidney disease Assessment - Abdominal pain - Pancreatitis - HTN, poorly controlled - BPH - Obesity with elevated Hgb A1c and 3+ Proteinuria - Abnormal renal function, CARLOS vs CKD, likely main componenet of dehydration Plan stop hydrate- increase flomax monitor renal parameters adjust bp meds as needed keep BS and BP in check JEFF: Equivocally mildly increased renal echogenicity, if real could indicate medical renal disease Negative for hydronephrosis Incidental finding bilateral renal cysts. Subjective ROS Limited/Unobtainable: No Objective Objective Last 24 Hour Vital Signs Date Time Temp Pulse Resp B/P (MAP) Pulse Ox O2 Delivery O2 Flow Rate FiO2 11/08/17 08:40 69 138/87 11/08/17 08:00 97.9 69 18 138/87 97 Room Air 97.9 11/08/17 05:46 147/86 11/08/17 05:45 147/86 11/08/17 04:50 98.3 79 20 147/86 97 Room Air 98.3 11/08/17 00:27 98.6 89 20 133/87 98 Room Air 98.6 11/07/17 21:45 153/78 11/07/17 21:45 153/78 11/07/17 20:00 97.9 98 20 153/78 96 Room Air 97.9 11/07/17 16:30 97.2 11/07/17 16:00 97.2 87 18 146/91 95 97.2 11/07/17 15:31 163/93 11/07/17 15:31 97.3 11/07/17 12:44 163/93 11/07/17 12:00 97.3 87 18 163/93 94 Room Air 97.3 Intake and Output 11/07/17 11/08/17 19:00 07:00 Intake Total 1000 ml 250 ml Output Total 600 ml Balance 400 ml 250 ml Intake Oral 1000 ml 250 ml Output Urine Total 600 ml # Voids 2 Laboratory Tests 11/08/17 06:57: Sodium Level 140, Potassium Level 3.6, Chloride Level 107, Carbon Dioxide Level 24, Anion Gap 9, Blood Urea Nitrogen 15, Creatinine 1.9H, Estimat Glomerular Filtration Rate 45.6, Glucose Level 98, Calcium Level 8.7, Phosphorus Level 3.6 , Magnesium Level 1.7L, Total Bilirubin 0.3, Aspartate Amino Transf (AST/SGOT) 19, Alanine Aminotransferase (ALT/SGPT) 42, Alkaline Phosphatase 60, Total Protein 6.1L, Albumin 2.5L, Globulin 3.6, Albumin/Globulin Ratio 0.7L Height (Feet): 6 Height (Inches): 0.00 Weight (Pounds): 272 General Appearance: no apparent distress Abdomen: soft Objective no change CAREY GONZALEZ Nov 08, 2017 10:11
[2017-11-08 11:59] VITALS: BP 158/68
[2017-11-08 15:49] VITALS: BP 158/78
--- NOTE | 2017-11-11 12:09 | Discharge Summary ---
Discharge Summary Discharge Summary _ DATE OF ADMISSION: 11/05/2017 DATE OF DISCHARGE: 11/08/2017 REASON FOR ADMISSION: 52 years old male with past medical history significant for hypertension, BPH, obesity, presented with t 3-4 days of sharp epigastric and right upper quadrant abdominal pain. Pain was described as a stabbing, intermittent , with maximal intensity 6 out of 10 ,no radiation and alleviated by lying on his side. Pain was aggravated by eating , but patient was able to tolerate oral diet. He denied nausea and vomiting , diarrhea, constipation, no fever ,no chills. He denied chest pain or shortness of breath. He denied black tarry stool, bright red blood per rectum, no hematemesis. He denied dysuria, urgency, hesitancy or frequency. Vital signs revealed no fever, stable heart rate and pulse oximetry; however blood pressure noted to be elevated 162/100 Laboratory workup revealed no leukocytosis , mild anemia with hemoglobin 13.4 hematocrit 40.7 Urinalysis +3 protein, otherwise no evidence of infection. CT of the abdomen and pelvis revealed no acute or significant abnormalities Patient admitted with diagnosis of abdominal pain, pancreatitis, hypertension , poorly controlled, obesity, acute kidney injury versus chronic kidney disease CONSULTANTS: GI specialist Dr. Horowitz senior process control tech Dr. Rocha [facility] COURSE: Patient admitted. Patient started on on IV fluids. Patient was kept nothing by mouth for bowel rest. Pain management was addressed, and pain was controlled. Supportive care provided. GI and nephrology evaluation were requested. Blood pressure ]was managed renal parameters electrolytes were closely monitored and nephrotoxins were avoided Renal ultrasound revealed no evidence of hydronephrosis, mildly increased renal echogenicity if real indicate medical renal disease. Incidental finding of bilateral renal cysts [employer] closely followed . Patient was hydrated. r Renal parameters and electrolytes were closely monitored. Electrolytes were corrected as needed. Nephrotoxins were avoided. Urine studies were done , no eosinophils were seen. Stable random sodium and creatinine. BUN from initial 25 down to 15, creatinine from 2.0 down to 1.9. IV fluids were stopped as per senior process control tech recommendation. DVT and GI prophylaxis provided. Blood pressure medication regimen was optimized to keep blood pressure under control. Blood pressure stabilized. Blood sugar was closely monitored, stable. Hemoglobin A1c 6.2. GI specialist closely followed . MRI of the abdomen demonstrated dilated extrahepatic and mildly dilated central intrahepatic bile ducts, but no definite downstream obstructing lesion was demonstrated. Possibly related to postcholecystectomy state. Liver function tests were stable. Lipase down to 119. Pain controlled. Hemoglobin and hematocrit with a small trend down, stool for occult blood was negative. GI specialist cleared patient for discharge and recommended outpatient GI procedure. Pain resolved, lipase down to normal, blood pressure stabilized, patient was ready for discharge home with outpatient follow-up with his primary care provider and outpatient GI procedure. FINAL DIAGNOSES: Pancreatitis Abdominal pain, likely secondary to pancreatitis-resolved Hypertensive kidney disease Obesity Acute kidney injury versus chronic kidney disease DISCHARGE MEDICATIONS: See Medication Reconciliation list. DISCHARGE INSTRUCTIONS: Patient was discharged home. Follow up with primary care provider. I have been assigned to dictate discharge summary for this account. I was not involved in the patient's management. Arielle Cortez NP Nov 11, 2017 12:09
== END 2017-11-08 16:40 | disposition home or self-care (01) | DRG 439 ==
LOC: EMR 16:07 → 4W 17:32 → EDBEDREQ 19:17
DX: K85.90 Acute pancreatitis without necrosis or infection, unspecified (principal); N17.9 Acute kidney failure, unspecified; K57.90 Diverticulosis of intestine, part unspecified, without perforation or abscess without bleeding; E66.9 Obesity, unspecified; Z68.36 Body mass index [BMI] 36.0-36.9, adult; N40.0 Benign prostatic hyperplasia without lower urinary tract symptoms; E86.0 Dehydration
CPT/HCPCS: 36415; 74176; 74181; 76770; 80048; 80053; 80061; 81003; 82270; 82550; 82570; 82977; 83036; 83690; 83735; 83880; 83930; 84100; 84300; 84443; 84484; 84550; 85025; 86140; 89050; 93005; 93306; 99285

== ENCOUNTER 2018-09-28 02:30 | Inpatient (IN) | payer MEDICARE, OTHER ==
[~2018-09-28] VITALS: Ht 182.9 cm; Wt 117.9 kg
[~2018-09-28 02:30] MED LIST: AMLODIPINE BESY10 MG ORAL; FLONASE ALLERG9.9 ML NS; HYDRALAZINE HCL50 MG ORAL; TAMSULOSIN HCL0.4 MG ORAL
--- NOTE | 2018-09-28 03:20 | NUR ---
ED Nurse Note: pt walked in c/o abd pain and black soft stool, pt reports he started having pain since , had nausea and vomiting (yellow and green color) but states he had black stool today. pt reports diffused abd pain. noted tenderness throughout and hypoactive BS. no active n/v at this time. denies diarrhea. hx cholecystectomy and noted healed surgical scar on right side abd. pt denies any chest pain at this time. pt AA&ox4, gcs=15, afebrile, skin warm and dry, resp even and unlabored, VSS, will cont monitor.
--- NOTE | 2018-09-28 03:25 | Emergency Room Report ---
History of Present Illness General Chief Complaint: Gastrointestinal Illness Source: Patient (Parveen Alvarez MD) Present Illness HPI Patient presents with 3 days of worsening abdominal pain. This began with vomiting 3 days ago. He was seen at urgent care. He's taken Zofran and the vomiting stopped. When he vomited it was just bile green and yellow. There is no blood, coffee grounds or food stuff. He's been able to eat well. He also takes Protonix. He also has been having abdominal pain is bandlike across the upper abdomen from left to right. This is 9/10 at this time. He tried taking [place] earlier. Didn't help very much. Earlier today he started having black and tarry bowel movements. There's been no bright red blood. He's not been taking Pepto-Bismol. The patient was seen at urgent care 2 days ago. They just took a hemoglobin and said it was 15 and states there was no problem at that time. The patient was admitted to this hospital before for pancreatitis and renal failure. He's not had endoscopy done. He had colonoscopy done. H/O BPH treated with Flomax. 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 [employer] Reviewed Nursing Documentation: PMH: Agreed; PSxH: Agreed (Parveen Alvarez MD) Nursing Documentation-PMH Hx Hypertension: Yes Hx Cancer: No Hx Gastrointestinal Problems: No Hx Dialysis: Yes - BPH Hx Neurological Problems: No (Parveen Alvarez MD) Review of Systems All Other Systems: negative except mentioned in HPI (Parveen Alvarez MD) Physical Exam Vital Signs Date Time Temp Pulse Resp B/P (MAP) Pulse Ox O2 Delivery O2 Flow Rate FiO2 09/28/18 02:57 98.4 71 18 98 Room Air Sp02 EP Interpretation: reviewed, normal General Appearance: well appearing, no apparent distress, GCS 15 Head: normocephalic Eyes: bilateral eye normal inspection, bilateral eye PERRL, bilateral eye EOMI ENT: moist mucus membranes Neck: supple Respiratory: lungs clear, normal breath sounds Cardiovascular #1: regular rate, rhythm Cardiovascular #2: 2+ radial (R) Gastrointestinal: normal inspection, normal bowel sounds, no mass, non- distended, no guarding, no rebound, tenderness - epigastric Musculoskeletal: back normal, gait/station normal, normal range of motion Neurologic: alert, oriented x3, grossly normal Psychiatric: anxious Skin: normal inspection, warm/dry (Parveen Alvarez MD) Medical Decision Making Diagnostic Impression: Primary Impression: Pancreatitis Qualified Codes: K85.80 - Other acute pancreatitis without necrosis or infection Additional Impressions: UGI bleed Acute renal failure Qualified Codes: N17.9 - Acute kidney failure, unspecified ER Course Patient presents with vomiting and epigastric pain and black stools. Differential includes upper GI bleed, pancreatitis, gastritis, peptic ulcer disease amongst others. The patient has had renal failure in the past. Patient will be evaluated with EKG, chest x-ray, abdominal film and labs. The patient will receive IV hydration, Protonix, Zofran and morphine. Hgb dropped 3 points from last (by patient report). Elevated lipase. Renal failure. Still with pain. Dilaudid ordered. Discussed with Dr. Jenkins who accepts for [facility] [place]. Unable to be transferred. Admitted here. Laboratory Tests Test 09/28/18 03:16 White Blood Count 5.3 K/UL (4.8-10.8) Red Blood Count 4.76 M/UL (4.70-6.10) Hemoglobin 12.2 G/DL (14.2-18.0) L Hematocrit 38.2 % (42.0-52.0) L Mean Corpuscular Volume 80 FL (80-99) Mean Corpuscular Hemoglobin 25.6 PG (27.0-31.0) L Mean Corpuscular Hemoglobin Concent 31.9 G/DL (32.0-36.0) L Red Cell Distribution Width 13.4 % (11.6-14.8) Platelet Count 156 K/UL (150-450) Mean Platelet Volume 7.9 FL (6.5-10.1) Neutrophils (%) (Auto) 59.7 % (45.0-75.0) Lymphocytes (%) (Auto) 27.5 % (20.0-45.0) Monocytes (%) (Auto) 9.3 % (1.0-10.0) Eosinophils (%) (Auto) 2.8 % (0.0-3.0) Basophils (%) (Auto) 0.7 % (0.0-2.0) Prothrombin Time 10.7 SEC (9.30-11.50) Prothrombin Time INR 1.0 (0.9-1.1) PTT 31 SEC (23-33) Urine Color Pale yellow Urine Appearance Clear Urine pH 5 (4.5-8.0) Urine Specific [place] 1.015 (1.005-1.035) Urine Protein 4+ (NEGATIVE) H Urine Glucose (UA) Negative (NEGATIVE) Urine Ketones Negative (NEGATIVE) Urine Blood Negative (NEGATIVE) Urine Nitrite Negative (NEGATIVE) Urine Bilirubin Negative (NEGATIVE) Urine Urobilinogen Normal MG/DL (0.0-1.0) Urine Leukocyte Esterase Negative (NEGATIVE) Urine RBC 0-2 /HPF (0 - 0) H Urine WBC 0-2 /HPF (0 - 0) Urine Squamous Epithelial Cells Occasional /LPF Urine Transitional Epithelial Cells Few /LPF (NONE) H Urine Bacteria Few /HPF (NONE) Sodium Level 138 MMOL/L (136-145) Potassium Level 3.0 MMOL/L (3.5-5.1) L Chloride Level 105 MMOL/L (98-107) Carbon Dioxide Level 24 MMOL/L (21-32) Anion Gap 9 mmol/L (5-15) Blood Urea Nitrogen 15 mg/dL (7-18) Creatinine 2.7 MG/DL (0.55-1.30) H Estimate Glomerular Filtration Rate 30.2 mL/min (>60) Glucose Level 130 MG/DL (74-106) H Calcium Level 8.7 MG/DL (8.5-10.1) Total Bilirubin 0.2 MG/DL (0.2-1.0) Aspartate Amino Transferase (AST) 20 U/L (15-37) Alanine Aminotransferase (ALT) 25 U/L (12-78) Alkaline Phosphatase 123 U/L (46-116) H Total Creatine Kinase 175 U/L (26-308) Troponin I 0.000 ng/mL (0.000-0.056) Total Protein 8.4 G/DL (6.4-8.2) H Albumin 3.5 G/DL (3.4-5.0) Globulin 4.9 g/dL Albumin/Globulin Ratio 0.7 (1.0-2.7) L Lipase 400 U/L (73-393) H (Parveen Alvarez MD) ER Course Patient's 2-hour limit had for transfer. I was informed by registration that the patient should be admitted here due to delay of care for transfer. Given patient's presentation and history of melanotic stool with decreasing hemoglobin I felt that patient will require admission. Given that insurance is not able to affect transfer for patient care patient will be admitted for further treatment. Case was discussed with Dr. Yuri Long who is a [facility] physician as well as Dr. Horowitz from . Back have accepted the patient patient will be admitted to [facility] for further management under their care. Labs Test 09/28/18 03:16 White Blood Count 5.3 K/UL (4.8-10.8) Red Blood Count 4.76 M/UL (4.70-6.10) Hemoglobin 12.2 G/DL (14.2-18.0) Hematocrit 38.2 % (42.0-52.0) Mean Corpuscular Volume 80 FL (80-99) Mean Corpuscular Hemoglobin 25.6 PG (27.0-31.0) Mean Corpuscular Hemoglobin Concent 31.9 G/DL (32.0-36.0) Red Cell Distribution Width 13.4 % (11.6-14.8) Platelet Count 156 K/UL (150-450) Mean Platelet Volume 7.9 FL (6.5-10.1) Neutrophils (%) (Auto) 59.7 % (45.0-75.0) Lymphocytes (%) (Auto) 27.5 % (20.0-45.0) Monocytes (%) (Auto) 9.3 % (1.0-10.0) Eosinophils (%) (Auto) 2.8 % (0.0-3.0) Basophils (%) (Auto) 0.7 % (0.0-2.0) Prothrombin Time 10.7 SEC (9.30-11.50) Prothromb Time International Ratio 1.0 (0.9-1.1) Activated Partial Thromboplast Time 31 SEC (23-33) Urine Color Pale yellow Urine Appearance Clear Urine pH 5 (4.5-8.0) Urine Specific [place] 1.015 (1.005-1.035) Urine Protein 4+ (NEGATIVE) Urine Glucose (UA) Negative (NEGATIVE) Urine Ketones Negative (NEGATIVE) Urine Blood Negative (NEGATIVE) Urine Nitrite Negative (NEGATIVE) Urine Bilirubin Negative (NEGATIVE) Urine Urobilinogen Normal MG/DL (0.0-1.0) Urine Leukocyte Esterase Negative (NEGATIVE) Urine RBC 0-2 /HPF (0 - 0) Urine WBC 0-2 /HPF (0 - 0) Urine Squamous Epithelial Cells Occasional /LPF Urine Transitional Epithelial Cells Few /LPF (NONE) Urine Bacteria Few /HPF (NONE) Sodium Level 138 MMOL/L (136-145) Potassium Level 3.0 MMOL/L (3.5-5.1) Chloride Level 105 MMOL/L (98-107) Carbon Dioxide Level 24 MMOL/L (21-32) Anion Gap 9 mmol/L (5-15) Blood Urea Nitrogen 15 mg/dL (7-18) Creatinine 2.7 MG/DL (0.55-1.30) Estimat Glomerular Filtration Rate 30.2 mL/min (>60) Glucose Level 130 MG/DL (74-106) Calcium Level 8.7 MG/DL (8.5-10.1) Total Bilirubin 0.2 MG/DL (0.2-1.0) Aspartate Amino Transf (AST/SGOT) 20 U/L (15-37) Alanine Aminotransferase (ALT/SGPT) 25 U/L (12-78) Alkaline Phosphatase 123 U/L (46-116) Total Creatine Kinase 175 U/L (26-308) Troponin I 0.000 ng/mL (0.000-0.056) Total Protein 8.4 G/DL (6.4-8.2) Albumin 3.5 G/DL (3.4-5.0) Globulin 4.9 g/dL Albumin/Globulin Ratio 0.7 (1.0-2.7) Lipase 400 U/L (73-393) (Nate Zhang MD) EKG Diagnostic Results Rate: normal Rhythm: NSR ST Segments: no acute changes - LVH (Parveen Alvarez MD) Rhythm Strip Diag. Results EP Interpretation: yes Rhythm: NSR, no PVC's, no ectopy (Parveen Alvarez MD) Chest X-Ray Diagnostic Results Chest X-Ray Diagnostic Results : Chest X-Ray Ordered: Yes # of Views/Limited/Complete: 1 View Indication: Other EP Interpretation: Yes Interpretation: no consolidation, no effusion, no pneumothorax Impression: No acute disease Electronically Signed by: Electronically signed by Parveen Alvarez MD (Parveen Alvarez MD) Other X-Ray Diagnostic Results Other X-Ray Diagnostic Results : X-Ray ordered: Abd # of Views/Limited Vs Complete: 2 View Indication: Pain Interpretation: nonspecific bowel gas, no sbo, other - surgical clips RUQ Impression: Other Electronically Signed by: Electronically signed by Parveen Alvarez MD (Parveen Alvarez MD) Last Vital Signs Date Time Temp Pulse Resp B/P (MAP) Pulse Ox O2 Delivery O2 Flow Rate FiO2 09/28/18 10:08 98.2 09/28/18 09:58 Room Air 09/28/18 09:38 177/98 09/28/18 09:37 72 09/28/18 08:31 15 99 Status: improved (Parveen Alvarez MD) Status: improved (Nate Zhang MD) Disposition: ADMITTED INPATIENT Condition: Serious Referrals: [facility]ERR[facility] (PCP) Parveen Alvarez MD September 28, 2018 03:25 Nate Zhang MD September 28, 2018 08:00
[2018-09-28 03:30] VITALS: BP 165/96
[2018-09-28] MEDS ORDERED: Pantoprazole Inj IV ONE (03:30)
[2018-09-28] MEDS ORDERED: Morphine Sulfate 4mg/ml Inj (IV USE ONLY) IVP ONE (03:30)
[2018-09-28 03:52] LABS: BASOPHILS % (AUTO) 0.7 % (0.0-2.0); EOSINOPHILS % (AUTO) 2.8 % (0.0-3.0); HEMATOCRIT 38.2 % (42.0-52.0); HEMOGLOBIN 12.2 G/DL (14.2-18.0); LYMPHOCYTES % (AUTO) 27.5 % (20.0-45.0); MEAN CORPUSCULAR VOLUME 80 FL (80-99); MONOCYTES % (AUTO) 9.3 % (1.0-10.0); NEUTROPHILS % (AUTO) 59.7 % (45.0-75.0); PLATELET COUNT 156 K/UL (150-450); RED BLOOD COUNT 4.76 M/UL (4.70-6.10); RED CELL DISTRIBUTION WIDTH 13.4 % (11.6-14.8); WHITE BLOOD COUNT 5.3 K/UL (4.8-10.8)
[2018-09-28] MEDS: Sodium Chloride 550 ML IV SCH ×2 (03:54→07:54)
[2018-09-28 03:56] LABS: APPEARANCE,URINE CLEAR; BILIRUBIN, URINE NEGATIVE (NEGATIVE); COLOR,URINE PALE YELLOW; GLUCOSE, URINE (UA) NEGATIVE (NEGATIVE); KETONES,URINE NEGATIVE (NEGATIVE); LEUKOCYTE ESTERASE ,URINE NEGATIVE (NEGATIVE); NITRITE,URINE NEGATIVE (NEGATIVE); PH,URINE 5 (4.5-8.0); PROTEIN,URINE 4+ (NEGATIVE); UROBILINOGEN,URINE NORMAL MG/DL (0.0-1.0)
[2018-09-28 04:23] LABS: ANION GAP 9 mmol/L (5-15); BLOOD UREA NITROGEN 15 mg/dL (7-18); CALCIUM 8.7 MG/DL (8.5-10.1); CARBON DIOXIDE 24 MMOL/L (21-32); CHLORIDE 105 MMOL/L (98-107); CREATININE 2.7 MG/DL (0.55-1.30); SODIUM 138 MMOL/L (136-145)
[2018-09-28 04:27] LABS: ALANINE AMINOTRANSFERASE 25 U/L (12-78); ALBUMIN 3.5 G/DL (3.4-5.0); ALBUMIN/GLOBULIN RATIO 0.7 (1.0-2.7); ALKALINE PHOSPHATASE 123 U/L (46-116); ASPARTATE AMINO TRANSFERASE 20 U/L (15-37); BILIRUBIN,TOTAL 0.2 MG/DL (0.2-1.0); CREATINE KINASE 175 U/L (26-308)
[2018-09-28 04:30] VITALS: BP 164/89
--- NOTE | 2018-09-28 05:10 | NUR ---
ED Nurse Note: pt states he continue to have pain, ermd aware.
[2018-09-28 05:30] VITALS: BP 148/87
[2018-09-28] MEDS ORDERED: Hydromorphone 0.5mg/0.5ml inj IVP ONE (05:30)
--- NOTE | 2018-09-28 05:52 | NUR ---
ED Nurse Note: VERIFIED WITH ERMD ASA 600MG RECTAL. ORDER D/C
[2018-09-28 07:00] VITALS: BP_SYST 180; BP_SYST 186; BP_DIAS 103; BP_DIAS 95
--- NOTE | 2018-09-28 07:13 | NUR ---
HAND-OFF: report given to RN Belkys and endorsed care, receiving RN notified regarding pt's iv status. pt vss, resp even and unlabored on RA.
--- NOTE | 2018-09-28 08:24 | NUR ---
ED Nurse Note: Gave report to SIDDHARTH Nieves.
--- NOTE | 2018-09-28 08:29 | NUR ---
ED Nurse Note: Pt transferred up to MS unit. No acute distress noted. Left ER w/ all belongings.
[2018-09-28] MEDS ORDERED: HYDROcodone/Acetamin 5/325 tab ORAL PRN (09:00)
[2018-09-28] MEDS ORDERED: HydrALAZINE 50mg tab ORAL SCH (09:15)
[2018-09-28] MEDS ORDERED: Pantoprazole Inj IVP SCH (09:15)
--- NOTE | 2018-09-28 09:15 | NUR ---
NURSE NOTES: Received pt from ER with stable condition. pt is under medical supervision of Dr. Humphreys for GI bleed and abdominal pain. dr. humphreys was presented in the unit and received admit order. Skin is intact. Alert and oriented x4, breathing regular and unlabored. c/o current abd pain /10. all belongings checked and signed by pt. Iv heplock patent and intact. Will continue to monitor
[2018-09-28 09:38] VITALS: BP 177/98
--- NOTE | 2018-09-28 10:00 | NUR ---
CHARGE NURSE NOTE: Pt received a call from his insurance; they informed him that if he will stay at [facility] he will pay out of packet. Pt became anxious and made a decision to leave [facility]. and Nursing process supervisor Hossein notified.
[2018-09-28] MEDS ORDERED: D5 1/2NS w/KCl 20mEq 1,000 ML IV SCH (10:30)
--- NOTE | 2018-09-28 10:35 | NUR ---
NURSE NOTES: pt left AMA due to pt's insurance is not covered. Dr. humphreys and supervisor anodizing notified and made aware. IV heplock removed and covered with gauze and taped.
--- NOTE | 2018-09-28 11:40 | Diagnostic Imaging Report ---
Indication: Dyspnea Comparison: None A single view chest radiograph was obtained. Findings: Cardiomediastinal appearance is within normal limits for age. The lungs are clear. Pulmonary vascularity is appropriate. The diaphragmatic contour is smooth and costophrenic angles are sharp. No pleural effusions are identified. The bones are unremarkable. Impression: No acute findings
--- NOTE | 2018-09-28 11:41 | Diagnostic Imaging Report ---
Indication: Abdominal pain Comparison: None Single view of the abdomen obtained Findings: Bowel gas pattern is nonspecific. No mass, ectopic calcifications, or abnormal gas collections are identified. The bones are unremarkable. Abdominal sutures and clips noted in the right side. There are diverticula demonstrated within the colon. Impression: No acute findings
--- NOTE | 2018-09-28 11:48 | NUR ---
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 PLACED A CALL TO MARY ENCOURAGED HIM TO REPORT TO THE HOSPITALS LISTED ABOVE. MARY VERBALIZED UNDERSTANDING, STATED HE WILL GO TO THE HOSPITAL NOW. STATED HE WILL GO TO [facility].
--- NOTE | 2018-09-28 12:26 | NUR ---
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 PANCREATITIS . ARF VS: BP 177/98, P 71, T 98.4, RR 18, SpO2 98 H&H 12.2/38.2, K 3.0, CR 2.7, URINE: PROTEIN 4+, BACTERIA-FEW IS:ZOFRAN 4mg NS x1L IV NS x1L IV MORPHINE 4mG DILAUDID 0.5mg ADMITTED TO MED/SURG PATIENT LEFT AMA
[2018-09-28] MEDS ORDERED: Tamsulosin 0.4mg cap ORAL SCH (21:00)
--- NOTE | 2018-09-29 03:15 | History and Physical Report ---
DATE OF ADMISSION: 09/28/2018 HISTORY OF PRESENT ILLNESS: The patient is a very pleasant 53-year-old man, who came to the emergency department with several days of abdominal pain and black tarry stool. He states that he has had an ulcer in the past about a year ago and again many years ago. He had some vomiting, but no hematemesis. He has no fevers, chills, or sweats. He has no diarrhea. Evaluation showed evidence of Hemoccult-positive stool and mild anemia and admission was arranged. He takes baby aspirin, but no nonsteroidal agents and no steroids. He was seen in Urgent Care a few days ago and was told his hemoglobin was 15. It is lower now. PAST MEDICAL HISTORY: Ulcer disease, hypertension, and past admission for renal failure and pancreatitis. He denies diabetes or cancer. He had gallbladder and prostate surgery in the past. MEDICATIONS: Reviewed. SOCIAL HISTORY: He does not smoke or use drugs or alcohol. 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 REVIEW OF SYSTEMS: Otherwise unremarkable. PHYSICAL EXAMINATION: GENERAL: The patient is alert and responds appropriately. VITAL SIGNS: Showed blood pressure is elevated. He is overweight. SKIN: Warm and dry. HEENT: The head is normocephalic. NECK: There is no jugular venous distention. CHEST: Clear. CARDIAC: Rhythm is regular. ABDOMEN: Soft and nontender. Liver and spleen are not enlarged. No mass or ascites. EXTREMITIES: No clubbing, cyanosis, or edema. LABORATORY STUDIES: Labs show hemoglobin is 12.2. Platelets and INR are satisfactory. Chemistry shows creatinine is 2.7, BUN 15, and potassium is 3.0. Lipase is slightly high at 400, now up to 393. IMPRESSIONS: 1. Gastrointestinal bleeding, likely due to ulcer or gastritis 2. Hypertension, poorly controlled. 3. Chronic kidney disease stage 4. 4. Hypokalemia. 5. Hyperglycemia, glucose 130. 6. Mild elevation of the lipase. 7. Proteinuria, 4+. PLAN: After I saw the patient, I have ordered his blood pressure medications. The patient apparently got a phone call from the [employer] stating that he was out of network and he would be required to pay [id number] for his stay. I spoke with the insurance company and they advised that they would authorize his care under my supervision, but the patient decided to leave even after I advised him of this. I contacted the insurance company again and they will be in touch with the patient and arrange for hospitalization in network. Yuri Long M.D. DR: WES JOB#: [id number] CC: Yuri Long M.D.; Fax#: [phone] MTDD
--- NOTE | 2018-09-30 08:34 | Discharge Summary ---
Arielle Cortez TRINITY 09/30/18 0834: Discharge Summary Discharge Summary _ DATE OF ADMISSION: 09/28/2018 DATE OF DISCHARGE: 09/28/2018 Patient left AGAINST MEDICAL ADVICE REASON FOR ADMISSION: 53 years old male with past medical history of ulcer disease, hypertension, chronic kidney disease, past admission for renal failure and pancreatitis, status post gallbladder and prostate surgery, came to emergency room with several days of abdominal pain and black tarry stools. Patient reported history of ulcer in the past( about a year ago as well as many years ago). Patient also reported vomiting but no hematemesis. Patient denied fever and chills . Patient denied diarrhea. No chest pain, no shortness of breath. Upon evaluation in ED stool was positive for occult blood. Blood pressure was elevated. Patient also exhibited mild anemia . Patient was seen in urgent care few days ago and at that time his hemoglobin was 15. Upon evaluation in emergency department hemoglobin was 12.2. Patient was on baby aspirin at home, but not on any steroids or non-steroidal anti-inflammatory medications. Potassium 3.0 . Lipase slightly elevated- 400 Creatinine 2.7, BUN 15. Glucose 130. Troponin negative. Urinalysis revealed +4 protein. Patient was admitted fro GI bleeding. HOSPITAL COURSE: Patient admitted to medical surgical floor . Antihypertensive medication regimen provided to keep blood pressure under control. Patient started on IV fluids. Patient started on GI prophylaxis with Protonix twice a day. Antiemetic were on board as needed. Supportive care provided. Pain management was addressed. Patient currently received a phone call from his insurance, stating that he was out of network and will require to pay out of pocket for his stay. Patient decided to leave AGAINST MEDICAL ADVICE , despite the conversation between physician and insurance company to authorize the care under attending physician. The risks and consequences of signing AGAINST MEDICAL ADVICE were discussed with patient in detail. Patient verbalized understanding, nevertheless signed AMA form and left. Return to ED precautions discussed with patient in detail. Insurance company was further contacted by attending physician to notify patient for arrangement of hospitalization in network. FINAL DIAGNOSES: Gastrointestinal bleeding , likely secondary to ulcer or gastritis Hypertension , poorly controlled Chronic kidney disease stage IV Hypokalemia Hyperglycemia glucose 130 Mild elevation of the lipase Proteinuria +4 I have been assigned to dictate discharge summary for this account. I was not involved in the patient's management. Yuri Long MD 09/30/18 0837: Discharge Summary Discharge Summary _ Dr Long advised that insurance company DID authorize stay but patient decided to leave Arielle Douglas NP September 30, 2018 08:34 Yuri Long MD September 30, 2018 08:37
== END 2018-09-28 10:35 | disposition left against medical advice (07) | DRG 378 ==
LOC: EMR 03:15 → 4E 07:50 → EDBEDREQ 08:03
DX: K25.4 Chronic or unspecified gastric ulcer with hemorrhage (principal); N17.9 Acute kidney failure, unspecified; N18.4 Chronic kidney disease, stage 4 (severe); K29.71 Gastritis, unspecified, with bleeding; K92.2 Gastrointestinal hemorrhage, unspecified; I10 Essential (primary) hypertension; I12.9 Hypertensive chronic kidney disease with stage 1 through stage 4 chronic kidney disease, or unspecified chronic kidney disease; E87.6 Hypokalemia; R73.9 Hyperglycemia, unspecified; D64.9 Anemia, unspecified
CPT/HCPCS: 36415; 71045; 74018; 80053; 81003; 82550; 83690; 84484; 85025; 85610; 85730; 86850; 86900; 86901; 93005; 96361; 96374; 96375; 99285; J2405